=== PATIENT | female | born 1955 | race Two or more races ===

== ENCOUNTER 2021-01-07 08:35 | Day surgery (SDC) | payer OTHER | END 2021-01-07 14:50 | disposition home or self-care (01) | LOC: AMB-ENDOS 08:35 | PROVIDERS: ATTEND Surgery | DX: K62.4 Stenosis of anus and rectum (principal); Z20.822 Contact with and (suspected) exposure to COVID-19 ==

== ENCOUNTER 2021-09-30 09:57 | Day surgery (SDC) | payer OTHER | END 2021-09-30 15:40 | disposition home or self-care (01) | LOC: AMB-ENDOS 09:57 | PROVIDERS: ATTEND Surgery | DX: K62.4 Stenosis of anus and rectum (principal) ==

== ENCOUNTER → 2023-01-23 | Day surgery (SDC) | payer OTHER | END | disposition home or self-care (01) | LOC: ADM 01-20 13:45 → EDBD 01-20 13:45 → AMB-ENDOS 01-20 13:45 | PROVIDERS: ATTEND Surgery | DX: K62.4 Stenosis of anus and rectum (principal); K62.7 Radiation proctitis; K59.00 Constipation, unspecified; Z85.048 Personal history of other malignant neoplasm of rectum, rectosigmoid junction, and anus; Z20.822 Contact with and (suspected) exposure to COVID-19 ==

== ENCOUNTER 2025-05-30 06:00 | Day surgery (SDC) | payer OTHER ==
[2025-05-30] MEDS ORDERED: fentaNYL CITRATE 50 MCG/ML AMPUL IV PUSH ONE (13:00)
[2025-05-30] MEDS ORDERED: DIPHENHYDRAMINE HCL 50 MG/ML VIAL 1ML IV ONE (13:00)
[2025-05-30] MEDS ORDERED: MIDAZOLAM HCL 2 MG/2 ML VIAL IV ONE (13:00)
== END 2025-05-30 14:20 | disposition home or self-care (01) ==
LOC: AMB-ENDOS 06:00
PROVIDERS: ATTEND Surgery
DX: D12.8 Benign neoplasm of rectum (principal); K62.4 Stenosis of anus and rectum; K62.7 Radiation proctitis; D37.5 Neoplasm of uncertain behavior of rectum; K59.00 Constipation, unspecified

== ENCOUNTER 2025-07-19 11:52 | Inpatient (IN) | payer OTHER ==
[~2025-07-19] VITALS: Wt 84.4 kg
[2025-07-19] MEDS ORDERED: GLIMEPIRIDE4 MG (14:12)
[2025-07-19] MEDS ORDERED: JARDIANCE10 MG PO (14:12)
[2025-07-19] MEDS ORDERED: JENTADUETO 2.51 EACH PO (14:12)
[2025-07-19] MEDS ORDERED: PEPCID AC20 MG (14:13)
[2025-07-19] MEDS ORDERED: LIPITOR40 M1 PO (14:13)
[2025-07-19 14:15] LABS: RH POSITIVE
[2025-07-25] MEDS ORDERED: METRONIDAZOLE/SODIUM CHLORIDE 500 MG/100 ML PIGGYBACK IV ONE ×2 (12:01→13:15)
[2025-07-25] MEDS ORDERED: CEFTRIAXONE SODIUM 2,000 MG VIAL ONE (12:01)
[2025-07-25] MEDS ORDERED: BUPIVACAINE HCL/MPF 0.5% 30ML VIAL ONE (12:44)
[2025-07-25] MEDS ORDERED: LIDOCAINE HCL 1%/EPINEPHRINE 20ML VIAL IJ ONE ×2 (12:44→13:15)
[2025-07-25] MEDS ORDERED: BUPIVACAINE HCL 30 ML VIAL IJ ONE (13:15)
[2025-07-25] MEDS ORDERED: CEFTRIAXONE SODIUM 2,000 MG VIAL IV ONE (13:15)
[2025-07-25] MEDS ORDERED: POVIDONE-IODINE 118 ML BOTT TOP ONE ×2 (13:41→15:31)
[2025-07-25] MEDS ORDERED: MORPHINE SULFATE 4 MG/ML CARTRIDGE IV PRN (16:45)
[2025-07-25] MEDS ORDERED: DEXTROSE 50 % IN WATER 0.5 G/ML VIAL IV PRN (16:45)
[2025-07-25] MEDS ORDERED: RINGERS SOLUTION,LACTATED 1,000 ML IV SCH (16:45)
[2025-07-25] MEDS ORDERED: ONDANSETRON HCL 2 MG/ML VIAL IV PRN (16:45)
[2025-07-25] MEDS ORDERED: OxyCODONE HCL 5 MG TABLET (ROXICODONE) PO PRN (16:45)
[2025-07-25] MEDS ORDERED: SUGAMMADEX SODIUM 200 MG/2 ML VIAL IV ONE (16:47)
[2025-07-25] MEDS ORDERED: GABAPENTIN 300 MG CAPSULE PO SCH (17:00)
[2025-07-25] MEDS ORDERED: INSULIN LISPRO 1,000 UNIT/10 ML UNITS SUBCUTANEO PRN (17:30)
[2025-07-25] MEDS ORDERED: DEXTROSE 50 % IN WATER 0.5 G/ML DISP.SYRIN IV PRN (17:30)
[2025-07-25] MEDS ORDERED: ENALAPRILAT DIHYDRATE 1.25 MG/ML VIAL IV PRN (17:30)
[2025-07-25] MEDS ORDERED: ACETAMINOPHEN 500 MG GEL..CAP PO SCH (20:00)
[2025-07-25] MEDS ORDERED: FAMOTIDINE/PF 20 MG/2 ML VIAL IV PUSH SCH (21:00)
[2025-07-25] MEDS ORDERED: CELECOXIB 200 MG CAPSULE PO SCH (21:00)
[2025-07-25 22:24] VITALS: BP 144/75; O2SAT 96
[2025-07-25 22:26] LABS: BASO % 0.3 % (0.1-1.2); EOS # 0.00 (0.04-0.54); EOS % 0.0 % (0.7-7.0); LYMPH # 0.63 (1.18-3.74); LYMPH % 5.5 % (19.3-53.1); MEAN PLATELET VOLUME 12.20 fl (9.4-12.4); MONO # 0.62 (0.24-0.82); MONO % 5.4 % (4.7-12.5); NEUT # 10.15 (1.56-6.13); NEUT % 88.5 % (34.0-71.1); RED CELL DISTRIBUTION WIDTH 12.8 % (11.6-14.4)
[2025-07-25 22:47] LABS: BUN CREA RATIO 8.0 (7.0-25.0); CREATININE SERUM 0.76 mg/dL (0.55-1.02); GFR 75.23
[2025-07-25 22:54] LABS: GLUCOSE FASTING 334.0 mg/dL (65-100); OSMOLALITY SERUM 292.0 MOSM/KG (275-295)
[2025-07-26 00:54] VITALS: BP 138/79; O2SAT 95
[2025-07-26 07:59] LABS: BASO % 0.1 % (0.1-1.2); EOS # 0.00 (0.04-0.54); EOS % 0.0 % (0.7-7.0); LYMPH # 1.59 (1.18-3.74); LYMPH % 10.9 % (19.3-53.1); MEAN PLATELET VOLUME 12.30 fl (9.4-12.4); MONO # 0.89 (0.24-0.82); MONO % 6.1 % (4.7-12.5); NEUT # 12.02 (1.56-6.13); NEUT % 82.5 % (34.0-71.1); RED CELL DISTRIBUTION WIDTH 12.8 % (11.6-14.4)
[2025-07-26 08:00] VITALS: BP 115/63; O2SAT 96
[2025-07-26 08:47] LABS: BUN CREA RATIO 14.0 (7.0-25.0); CREATININE SERUM 0.5 mg/dL (0.55-1.02); GFR 121.97; OSMOLALITY SERUM 285.0 MOSM/KG (275-295)
[2025-07-26 08:52] LABS: GLUCOSE FASTING 236.0 mg/dL (65-100)
[2025-07-26] MEDS ORDERED: TAMSULOSIN HCL 0.4 MG CAP PO SCH (10:58)
[2025-07-26] MEDS ORDERED: INSULIN NPH HUMAN ISOPHANE 1,000 UNITS/10 ML UNITS SUBCUTANEO SCH ×2 (11:56→16:00)
[2025-07-26] MEDS ORDERED: MAGNESIUM SULFATE IN WATER 50 ML IV NR (12:00)
[2025-07-26 16:00] VITALS: BP 100/60; O2SAT 95
[2025-07-26] MEDS ORDERED: ATORVASTATIN CALCIUM 40 MG TABLET PO SCH (17:00)
[2025-07-26] MEDS ORDERED: ENOXAPARIN SODIUM 40 MG/0.4 ML SYRINGE SUBCUTANEO SCH (17:00)
[2025-07-26] MEDS ORDERED: 0.9 % SODIUM CHLORIDE 1,000 ML IV SCH (17:45)
[2025-07-27 01:42] VITALS: BP 106/72; O2SAT 96
[2025-07-27 07:47] LABS: BASO % 0.3 % (0.1-1.2); EOS # 0.09 (0.04-0.54); EOS % 0.7 % (0.7-7.0); LYMPH # 1.57 (1.18-3.74); LYMPH % 12.2 % (19.3-53.1); MEAN PLATELET VOLUME 12.10 fl (9.4-12.4); MONO # 0.60 (0.24-0.82); MONO % 4.7 % (4.7-12.5); NEUT # 10.44 (1.56-6.13); NEUT % 81.4 % (34.0-71.1); RED CELL DISTRIBUTION WIDTH 13.2 % (11.6-14.4)
[2025-07-27] MEDS ORDERED: INSULIN LISPRO 1,000 UNIT/10 ML UNITS SUBCUTANEO SCH ×2 (08:00→12:00)
[2025-07-27 08:23] LABS: BUN CREA RATIO 18.0 (7.0-25.0); CREATININE SERUM 0.56 mg/dL (0.55-1.02); GFR 107.02; GLUCOSE FASTING 146.0 mg/dL (65-100); OSMOLALITY SERUM 285.0 MOSM/KG (275-295)
[2025-07-27 08:46] VITALS: BP 105/68; O2SAT 98
[2025-07-27] MEDS ORDERED: INSULIN GLARGINE,HUM.REC.ANLOG 1,000 UNITS/10 ML UNITS SUBCUTANEO SCH (09:00)
[2025-07-27] MEDS ORDERED: ENOXAPARIN SODIUM 40 MG/0.4 ML SYRINGE SUBCUTANEO SCH (09:00)
[2025-07-27 16:00] VITALS: BP 91/54; O2SAT 98
[2025-07-28 02:59] VITALS: BP 104/68; O2SAT 96
[2025-07-28 08:00] VITALS: BP 114/70; O2SAT 95
[2025-07-28] MEDS ORDERED: INSULIN LISPRO 1,000 UNIT/10 ML UNITS SUBCUTANEO SCH ×2 (08:00→12:00)
[2025-07-28] MEDS ORDERED: INSULIN GLARGINE,HUM.REC.ANLOG 1,000 UNITS/10 ML UNITS SUBCUTANEO SCH (09:00)
[2025-07-28 16:50] VITALS: BP 112/73; O2SAT 97
[2025-07-29 01:24] VITALS: BP 113/72; O2SAT 96
[2025-07-29 07:26] LABS: BASO % 0.3 % (0.1-1.2); EOS # 0.33 (0.04-0.54); EOS % 4.4 % (0.7-7.0); LYMPH # 1.83 (1.18-3.74); LYMPH % 24.3 % (19.3-53.1); MEAN PLATELET VOLUME 11.60 fl (9.4-12.4); MONO # 0.69 (0.24-0.82); MONO % 9.2 % (4.7-12.5); NEUT # 4.64 (1.56-6.13); NEUT % 61.5 % (34.0-71.1); RED CELL DISTRIBUTION WIDTH 13.6 % (11.6-14.4)
[2025-07-29 08:00] VITALS: BP 114/71; O2SAT 97
[2025-07-29 08:00] LABS: BUN CREA RATIO 22.0 (7.0-25.0); CREATININE SERUM 0.54 mg/dL (0.55-1.02); GFR 111.61; GLUCOSE FASTING 193.0 mg/dL (65-100); OSMOLALITY SERUM 290.0 MOSM/KG (275-295)
== END 2025-07-29 13:57 | disposition home or self-care (01) | DRG 331 ==
LOC: SURH 07-25 07:00 → O/R 07-25 11:00 → SURH 07-25 11:00
PROVIDERS: ADMIT Surgery; ATTEND Surgery
PROC: 0DTP4ZZ Resection of Rectum, Percutaneous Endoscopic Approach (ICD-10-PCS; 2025-07-25)
PROC: 0DBN4ZG Excision of Sigmoid Colon, Percutaneous Endoscopic Approach, Hand-Assisted (ICD-10-PCS; 2025-07-25)
PROC: 0DBQ4ZZ Excision of Anus, Percutaneous Endoscopic Approach (ICD-10-PCS; 2025-07-25)
PROC: 0T788DZ Dilation of Bilateral Ureters with Intraluminal Device, Via Natural or Artificial Opening Endoscopic (ICD-10-PCS; 2025-07-25)
PROC: 0D1E4Z4 Bypass Large Intestine to Cutaneous, Percutaneous Endoscopic Approach (ICD-10-PCS; principal; 2025-07-25 07:00)
DX: C20 Malignant neoplasm of rectum (principal); Z92.21 Personal history of antineoplastic chemotherapy; R33.8 Other retention of urine; E11.9 Type 2 diabetes mellitus without complications

== ENCOUNTER 2025-09-26 11:00 | Day surgery (SDC) | payer OTHER ==
[2025-08-31 09:58] LABS: URINE APPEARANCE Cloudy; URINE BILIRRUBIN Negative (NEGATIVE); URINE BLOOD Small; URINE COLOR Yellow; URINE KETONE Negative (NEGATIVE); URINE LEUKOCYTE Small; URINE NITRATE Negative; URINE PROTEIN 30 (NEGATIVE); URINE UROBILINOGEN 0.2 E.U./dl
[2025-08-31 10:00] VITALS: BP 150/72
[2025-08-31 10:03] LABS: URINE BACTERIA 603.5 uL (0.0-1933); URINE EPITHELIAL CELLS 98.6 uL (0.0-38.8); URINE RBC 420.0 uL (0.0-20.8); URINE WBC 661.5 uL (0.0-23.2)
[2025-08-31 10:14] LABS: BASO % 0.4 % (0.1-1.2); EOS # 0.15 (0.04-0.54); EOS % 1.6 % (0.7-7.0); LYMPH # 2.66 (1.18-3.74); LYMPH % 27.6 % (19.3-53.1); MEAN PLATELET VOLUME 10.80 fl (9.4-12.4); MONO # 0.67 (0.24-0.82); MONO % 7.0 % (4.7-12.5); NEUT # 6.09 (1.56-6.13); NEUT % 63.2 % (34.0-71.1); RED CELL DISTRIBUTION WIDTH 13.2 % (11.6-14.4)
[2025-08-31 10:21] LABS: TYPE CELLS SQUAMOUS; URINE CAST 0.58 uL (0.0-1.40); URINE GLUCOSE >=1000 MG/DL (NEGATIVE); URINE YEAST MANY /hpf
[2025-08-31 10:42] LABS: BUN CREA RATIO 12.0 (7.0-25.0); CREATININE SERUM 0.52 mg/dL (0.55-1.02); GFR 116.58; OSMOLALITY SERUM 279.0 MOSM/KG (275-295)
[2025-08-31 10:43] LABS: INR 1.05
[2025-08-31 11:00] LABS: GLUCOSE FASTING 202.0 mg/dL (65-100)
[~2025-09-26] VITALS: Ht 149.9 cm; Wt 84.4 kg
[~2025-09-26 11:00] MED LIST: GLIMEPIRIDE4 MG; JARDIANCE10 MG PO; JENTADUETO 2.51 EACH PO; LIPITOR40 M1 PO; PEPCID AC20 MG
[2025-09-26] MEDS ORDERED: TRAM1TAB98 PO (12:29)
[2025-09-26] MEDS ORDERED: BUPIVACAINE HCL 30 ML VIAL IJ ONE (13:30)
[2025-09-26] MEDS ORDERED: CEFAZOLIN SODIUM 1,000 MG VIAL IV ONE (13:30)
[2025-09-26] MEDS ORDERED: LIDOCAINE HCL 1% 20 ML VIAL IJ ONE (13:30)
== END 2025-09-26 15:30 | disposition home or self-care (01) ==
LOC: CIR.AMB 11:00
PROVIDERS: ATTEND Surgery
DX: C20 Malignant neoplasm of rectum (principal)
CPT/HCPCS: 36561; C1751